=== PATIENT | female | born 1965 | race African-American/Black ===

== ENCOUNTER 2017-01-11 19:43 | Emergency (ER) | payer SELFPAY ==
[~2017-01-11] VITALS: Ht 160 cm; Wt 66.0 kg
[2017-01-11] MEDS ORDERED: IBUPROFEN 600MG TABLET PO STA (22:38)
[2017-01-11] MEDS ORDERED: ALBUTEROL (0.5%) 2.5MG/0.5ML NEB HHN ONE (22:45)
[2017-01-11] MEDS ORDERED: CLONIDINE 0.1MG TABLET PO ONE (22:45)
[2017-01-11 22:59] LABS: BASOPHILS % 0.7 % (0.0-2.0); EOSINOPHILS % 0.1 % (0.0-5.0); HEMATOCRIT. 40.1 % (36.0-48.0); HEMOGLOBIN. 13.2 g/dL (12.0-16.0); LYMPHOCYTES % 15.8 % (20.0-50.0); MEAN CORPUSCULAR HEMOGLOBIN 28.3 pg (28.0-32.0); MEAN CORPUSCULAR VOLUME 86.1 fL (81.0-99.0); MEAN PLATELET VOLUME 8.5 fl (7.4-10.4); MONOCYTES % 4.4 % (2.0-8.0); PLATELET 203 x1000/uL (130-400); RED BLOOD CELL COUNT 4.66 mill/uL (4.2-5.4); RED CELL DISTRIBUTION WIDTH 12.9 % (11.6-14.6)
[2017-01-11 23:03] LABS: CHLORIDE 105 mEq/L (98-107)
[2017-01-11 23:12] LABS: CARBON DIOXIDE 28 mEq/L (21-32)
[2017-01-12 00:10] VITALS: BP 166/115
== END 2017-01-12 01:03 | disposition home or self-care (01) ==
LOC: ER 19:43
DX: S30.0XXA Contusion of lower back and pelvis, initial encounter (principal); I10 Essential (primary) hypertension; J45.909 Unspecified asthma, uncomplicated; V43.52XA Car driver injured in collision with other type car in traffic accident, initial encounter; Y93.89 Activity, other specified; Y92.488 Other paved roadways as the place of occurrence of the external cause
CPT/HCPCS: 36415; 71010; 80053; 81025; 85025; 93005; 94640; 99285; J7611; Z7610